=== PATIENT | female | born 1955 | race Caucasian/White ===

== ENCOUNTER 2021-04-23 02:47 | Day surgery (SDC) | payer MEDICARE, SELFPAY ==
--- NOTE | 2021-02-26 08:24 | PM.IMHP ---
H&P: HPI History of Present Illness Date/Time: 02/26/21 08:24 65-year-old female here for a repeat injection of Botox Chief Complaint: Neurogenic bladder Review of Systems Review of Systems: All systems reviewed & are unremarkable except as noted in HPI and below PMFSH Social History Social History Gender identity (if verbalized by the patient): Female Meds Home Medications and Allergies Home Medications Medication Instructions Recorded Confirmed Type Probiotic Acidophilus 1.5 mg PO DAILY 07/26/19 08/02/19 History cholecalciferol (vitamin D3) 5,000 unit PO DAILY 07/26/19 08/02/19 History [Vitamin D3] docusate sodium [Colace] 250 mg PO DAILY 07/26/19 08/02/19 History doxycycline hyclate 100 mg PO DAILY 07/26/19 08/02/19 History hydrocodone-acetaminophen 1 tablet PO Q4-6H 07/26/19 08/02/19 History magnesium oxide 1,000 mg PO HS 07/26/19 08/02/19 History melatonin 10 mg PO HS PRN 07/26/19 08/02/19 History meloxicam 7.5 mg PO DAILY 07/26/19 08/02/19 History oxybutynin chloride 5 mg PO TID 07/26/19 08/02/19 History vitamin B complex-folic acid 0.4 tablet PO DAILY 07/26/19 08/02/19 History [Super B Maxi Complex] amoxicillin-pot clavulanate 1 tablet PO BID 08/02/19 08/02/19 History Allergies Allergy/AdvReac Type Severity Reaction Status Date / Time No Known Allergies Allergy Verified 08/02/19 12:53 Exam Const: General: cooperative and healthy appearing HENMT: Head: normal to inspection Eyes: General: appearance normal, both eyes and all related structures Neck: Neck: normal visual inspection Resp: Effort & Inspection: normal respiratory effort, able to speak in complete sentences and no cough GI: Inspection: normal to inspection Back/Spine/Pelvis: Back: no CVA tenderness Skin: General skin exam: normal color and no rashes or lesions noted Assessment and Plan Assessment and plan (1) Uninhibited neurogenic bladder: Code(s): N31.9 - Neuromuscular dysfunction of bladder, unspecified Status: Acute Assessment and Plan: Cystoscopy the injection of Botox.
[2021-03-01 13:18] VITALS: BMI 24.2
--- NOTE | 2021-03-05 19:10 | PM.IMHP ---
H&P: HPI History of Present Illness Date/Time: 03/05/21 19:10 65 yo with NGB, urinary retention, and ISD Chief Complaint: NGB/ISD Review of Systems Review of Systems: All systems reviewed & are unremarkable except as noted in HPI and below PMFSH Social History Social History Years smoked: 10 Smoking status: Former smoker Last use: 1980 Living arrangements: alone Gender identity (if verbalized by the patient): Female Spiritual care concerns: No Meds Home Medications and Allergies Home Medications Medication Instructions Recorded Confirmed Type hydrocodone-acetaminophen 1 tablet PO Q4-6H 07/26/19 03/01/21 History melatonin 10 mg PO HS PRN 07/26/19 03/01/21 History meloxicam 7.5 mg PO DAILY 07/26/19 03/01/21 History oxybutynin chloride 5 mg PO TID 07/26/19 03/01/21 History conj estrog-medroxyprogest rodriog 1 tablet PO DAILY 03/01/21 03/01/21 History [Prempro] Allergies Allergy/AdvReac Type Severity Reaction Status Date / Time No Known Allergies Allergy Verified 03/01/21 13:30 Exam Const: General: cooperative HENMT: Head: normal to inspection Resp: Effort & Inspection: normal respiratory effort and able to speak in complete sentences Skin: General skin exam: normal color Assessment and Plan Assessment and plan (1) Uninhibited neurogenic bladder: Code(s): N31.9 - Neuromuscular dysfunction of bladder, unspecified Status: Acute Assessment and Plan: botox 200 vs 300 units (2) Intrinsic sphincter deficiency (ISD): Code(s): N36.42 - Intrinsic sphincter deficiency (ISD) Status: Acute Assessment and Plan: bulking agent
--- NOTE | 2021-03-09 07:21 | WPDHPUPDATE1 ---
History and Physical Update Update Date/Time: 03/09/21 07:21 History and Physical has been reviewed, including an updated exam of the patient. There are NO changes in the patient's condition. Risks, benefits, and alternatives have been discussed and questions answered. Patient agrees to proceed with procedure.
[2021-04-17 13:06] VITALS: BMI 24.2
--- NOTE | 2021-04-21 09:43 | PM.IMHP ---
H&P: HPI History of Present Illness Date/Time: 04/21/21 09:43 65yo with neurogenic incontinence and ISD Chief Complaint: NGB/ISD Review of Systems Review of Systems: All systems reviewed & are unremarkable except as noted in HPI and below PMFSH Social History Social History Years smoked: 10 Smoking status: Former smoker Last use: 1980 Living arrangements: alone Gender identity (if verbalized by the patient): Female Spiritual care concerns: No Meds Home Medications and Allergies Home Medications Medication Instructions Recorded Confirmed Type hydrocodone-acetaminophen 1 tablet PO Q4-6H 07/26/19 03/01/21 History melatonin 10 mg PO HS PRN 07/26/19 03/01/21 History meloxicam 7.5 mg PO DAILY 07/26/19 03/01/21 History oxybutynin chloride 5 mg PO TID 07/26/19 03/01/21 History conj estrog-medroxyprogest rodrigo 1 tablet PO DAILY 03/01/21 03/01/21 History [Prempro] Allergies Allergy/AdvReac Type Severity Reaction Status Date / Time No Known Allergies Allergy Verified 04/17/21 13:03 Exam Const: General: cooperative HENMT: Head: normal to inspection Eyes: General: appearance normal, both eyes and all related structures Resp: Effort & Inspection: normal respiratory effort and able to speak in complete sentences Skin: General skin exam: normal color Assessment and Plan Assessment and plan (1) Intrinsic sphincter deficiency (ISD): Code(s): N36.42 - Intrinsic sphincter deficiency (ISD) Status: Acute Assessment and Plan: bulking agent. Understands potential success rate and need for repeat procedure (2) Uninhibited neurogenic bladder: Code(s): N31.9 - Neuromuscular dysfunction of bladder, unspecified Status: Acute Assessment and Plan: botox 300U
--- NOTE | 2021-04-23 06:02 | WPDHPUPDATE1 ---
History and Physical Update Update Date/Time: 04/23/21 06:02 History and Physical has been reviewed, including an updated exam of the patient. There are NO changes in the patient's condition. Risks, benefits, and alternatives have been discussed and questions answered. Patient agrees to proceed with procedure.
--- NOTE | 2021-04-23 16:25 | SUR.PREOP ---
1600 MD IN TO SEE PT. PROCEDURE CANCELLED PT STRAIGHT CATHING SELF BEFORE LEAVING
--- NOTE | 2021-04-23 17:02 | WPDUROPN2 ---
Subjective Subjective Date/Time Seen: 04/23/21 17:02 we elected to not proceed with surgery today. We instead elected to get a urodynamic study to fully understand her bladder behavior before undergoing further therapy. At this point I am unsure her bladder issue is neurogenic overactive bladder or intrinsic sphincter deficiency
== END 2021-04-23 16:18 | disposition home or self-care (01) ==
PROVIDERS: Visit Provider Urology
PROC: 3E0K8GC Introduction of Other Therapeutic Substance into Genitourinary Tract, Via Natural or Artificial Opening Endoscopic (ICD-10-PCS; CPT 52287; principal; 2021-04-23 15:00)
DX: N36.42 Intrinsic sphincter deficiency (ISD) (principal); N31.9 Neuromuscular dysfunction of bladder, unspecified; Z53.8 Procedure and treatment not carried out for other reasons
CPT/HCPCS: 99211; A9270; G0463